=== PATIENT | female | born 1980 | race Caucasian/White ===

== ENCOUNTER 2018-08-03 21:32 | Observation (INO) ==
[2018-08-03] MEDS ORDERED: SODIUM CHLORIDE 0.9% 1,000 ML IV STA ×2 (21:56→21:57)
[2018-08-03] MEDS ORDERED: diphenhydrAMINE 50 MG/1 ML VIAL IV STA (21:57)
[2018-08-03] MEDS ORDERED: METOCLOPRAMIDE 10 MG/2 ML VIAL IV STA (21:57)
[2018-08-03 22:29] LABS: Basophils % 0.3 % (0.0-0.8); Eosinophils % 0.1 % (0.00-10.9); Hematocrit 39.6 VOL% (35.7-47.0); Hemoglobin 13.8 GM/DL (12.0-16.0); Immature Granulocytes % 0.4 %; Immature Granulocytes Absolute 0.06 #; Lymphocytes # 2.6 10*3/uL (1.4-4.0); Mean Corpuscular HGB Conc 34.8 GM/DL (32-36); Mean Corpuscular Volume 88.6 FL (87-102); Monocytes % 10.5 % (1.7-12.7); Neutrophils % 70.7 % (38.7-73.9); Platelet Count 304 T/CUMM (130-400); Red Blood Count 4.47 MC/CUMM (3.8-5.5); White Blood Count 14.4 T/CUMM (4-12)
[2018-08-03 22:56] LABS: Albumin 4.7 G/DL (3.4-5.0); Bilirubin,Total 0.8 MG/DL (0.2-1.0); Calcium 9.9 MG/DL (8.5-10.1); Osmolality,Calculated 269.4 MOS/KG (273-304); Total Protein 8.2 G/DL (6.4-8.3)
[2018-08-03] MEDS ORDERED: DOCUSATE SODIUM 100 MG CAPSULE PO PRN (23:39)
[2018-08-04] MEDS: MORPHINE 4 MG/1 ML VIAL IV PRN ×7 (00:06→23:39)
[2018-08-04] MEDS: ONDANSETRON 4 MG/2 ML VIAL IV PRN ×6 (00:06→21:31)
[2018-08-04 00:10] LABS: Risk Ratio 3.43; VLDL CHOLESTEROL 48.2 MG/DL
[2018-08-04 00:27] LABS: Apearance,Urine CLEAR (Clear); Protein,Urine Negative; Urine Color Yellow (Yellow); Urine Specific Gravity 1.016 (1.001-1.035)
[2018-08-04 00:28] LABS: Bilirubin,Urine Negative (Negative); Blood, Urine Negative (Negative); Glucose,Urine (UA) Negative (Negative); Ketones,Urine 5 mg/dL (Negative); Mucus,Urine Few /LPF (Occasional); Nitrite,Urine Negative (Negative); RBC,Urine <1 /HPF (0-4); Squamous Epithelial Cell,Urine Occasional /HPF (0-10); WBC,Urine 3 /HPF (0-6)
[2018-08-04] MEDS: SODIUM CHLORIDE 0.9% 1,000 ML IV SCH ×3 (02:03→20:39)
[2018-08-04 02:16] LABS: Barbiturates Screen,Urine Negative (Negative); Benzodiazepines Screen,Urine Negative (Negative); Cannabinoid Screen,Urine Positive (Negative); Opiate Screen,Urine Negative (Negative); Phencyclidine Screen,Urine Negative (Negative)
[2018-08-04] MEDS: POTASSIUM CHLORIDE RIDER 10 MEQ in PREMIX 1 EACH IV SCH ×4 (02:17→14:48)
[2018-08-04] MEDS ORDERED: POTASSIUM CHLORIDE RIDER 10 MEQ in PREMIX 1 EACH IV SCH (03:30)
[2018-08-04] MEDS: METOCLOPRAMIDE 10 MG TABLET PO SCH ×4 (05:55→21:46)
[2018-08-04 06:48] LABS: Basophils % 0.2 % (0.0-0.8); Eosinophils % 0.2 % (0.00-10.9); Hematocrit 34.9 VOL% (35.7-47.0); Hemoglobin 12.3 GM/DL (12.0-16.0); Immature Granulocytes % 0.5 %; Immature Granulocytes Absolute 0.06 #; Lymphocytes # 2.8 10*3/uL (1.4-4.0); Lymphocytes % 20.6 % (21.3-54.2); Mean Corpuscular HGB Conc 35.2 GM/DL (32-36); Mean Corpuscular Volume 89.7 FL (87-102); Mean Platelet Volume 10.6 FL (9.6-12.0); Monocytes % 11.1 % (1.7-12.7); Neutrophils % 67.4 % (38.7-73.9); Platelet Count 269 T/CUMM (130-400); Red Blood Count 3.89 MC/CUMM (3.8-5.5); Red Cell Distribution Width 12.2 % (9.3-17.3); White Blood Count 13.3 T/CUMM (4-12)
[2018-08-04 07:12] LABS: Albumin 3.7 G/DL (3.4-5.0); Bilirubin,Total 0.7 MG/DL (0.2-1.0); Calcium 8.6 MG/DL (8.5-10.1); Osmolality,Calculated 271.1 MOS/KG (273-304); Total Protein 6.7 G/DL (6.4-8.3)
[2018-08-04] MEDS: PANTOPRAZOLE 40 MG TABLET PO SCH (08:57)
[2018-08-04] MEDS: AZITHROMYCIN INJ 500 MG in SODIUM CHLORIDE 0.9% 250 ML IV SCH (16:44)
[2018-08-05] MEDS: ONDANSETRON 4 MG/2 ML VIAL IV PRN ×4 (00:47→18:33)
[2018-08-05] MEDS: SODIUM CHLORIDE 0.9% 1,000 ML IV SCH ×4 (02:53→17:47)
[2018-08-05] MEDS: MORPHINE 4 MG/1 ML VIAL IV PRN ×4 (03:13→18:00)
[2018-08-05 04:53] LABS: Basophils % 0.4 % (0.0-0.8); Eosinophils # 0.1 10*3/uL (0.0-0.87); Eosinophils % 0.8 % (0.00-10.9); Hematocrit 34.4 VOL% (35.7-47.0); Hemoglobin 11.4 GM/DL (12.0-16.0); Immature Granulocytes % 0.4 %; Immature Granulocytes Absolute 0.04 #; Mean Corpuscular HGB Conc 33.1 GM/DL (32-36); Mean Corpuscular Volume 92.5 FL (87-102); Mean Platelet Volume 10.4 FL (9.6-12.0); Monocytes % 10.4 % (1.7-12.7); Platelet Count 231 T/CUMM (130-400); Red Blood Count 3.72 MC/CUMM (3.8-5.5); Red Cell Distribution Width 12.1 % (9.3-17.3); White Blood Count 10.5 T/CUMM (4-12)
[2018-08-05 05:16] LABS: Calcium 8.7 MG/DL (8.5-10.1); Osmolality,Calculated 277.4 MOS/KG (273-304)
[2018-08-05] MEDS: METOCLOPRAMIDE 10 MG TABLET PO SCH ×3 (05:32→21:51)
[2018-08-05] MEDS: PANTOPRAZOLE 40 MG TABLET PO SCH (09:12)
[2018-08-05] MEDS: PANTOPRAZOLE 40 MG VIAL IV SCH (17:47)
[2018-08-05] MEDS: AZITHROMYCIN INJ 500 MG in SODIUM CHLORIDE 0.9% 250 ML IV SCH (17:47)
[2018-08-06] MEDS: SODIUM CHLORIDE 0.9% 1,000 ML IV SCH ×3 (01:59→21:06)
[2018-08-06] MEDS: ONDANSETRON 4 MG/2 ML VIAL IV PRN (02:00)
[2018-08-06] MEDS: MORPHINE 4 MG/1 ML VIAL IV PRN (02:00)
[2018-08-06] MEDS: METOCLOPRAMIDE 10 MG TABLET PO SCH ×2 (06:35→14:59)
[2018-08-06] MEDS: PANTOPRAZOLE 40 MG VIAL IV SCH (10:23)
[2018-08-06 11:53] VITALS: BP 140/95
== END 2018-08-06 16:17 | disposition home or self-care (01) ==
LOC: N.ED 21:32 → N.EDINP 21:32 → SUATTDRO 23:39 → N.3E 08-04 00:22
PROVIDERS: ADMIT Internal Medicine; ATTEND Hospitalist

== ENCOUNTER 2018-08-08 20:02 | Observation (INO) ==
[2018-08-08 20:47] LABS: Basophils % 0.2 % (0.0-0.8); Hematocrit 35.4 VOL% (35.7-47.0); Hemoglobin 12.5 GM/DL (12.0-16.0); Immature Granulocytes % 0.5 %; Immature Granulocytes Absolute 0.07 #; Lymphocytes # 1.2 10*3/uL (1.4-4.0); Lymphocytes % 8.3 % (21.3-54.2); Mean Corpuscular HGB Conc 35.3 GM/DL (32-36); Mean Corpuscular Volume 88.7 FL (87-102); Mean Platelet Volume 10.9 FL (9.6-12.0); Monocytes % 3.6 % (1.7-12.7); Neutrophils % 87.4 % (38.7-73.9); Platelet Count 294 T/CUMM (130-400); Red Blood Count 3.99 MC/CUMM (3.8-5.5); Red Cell Distribution Width 12.4 % (9.3-17.3); White Blood Count 14.1 T/CUMM (4-12)
[2018-08-08] MEDS ORDERED: HYDROmorphone 2 MG/1 ML VIAL IV STA (21:02)
[2018-08-08] MEDS ORDERED: ONDANSETRON 4 MG/2 ML VIAL IV STA (21:02)
[2018-08-08] MEDS ORDERED: PANTOPRAZOLE 40 MG VIAL IV STA (21:02)
[2018-08-08] MEDS ORDERED: METOCLOPRAMIDE 10 MG/2 ML VIAL IV STA (21:02)
[2018-08-08 21:14] LABS: Alanine Aminotransferase 26 U/L (13-56); Alkaline Phosphatase 90 U/L (45-117); Aspartate Amino Transferase 11 U/L (0-37); Blood Urea Nitrogen 5 MG/DL (7-18); Calcium 9.2 MG/DL (8.5-10.1); Glucose 126 MG/DL (74-106); Osmolality,Calculated 271.8 MOS/KG (273-304); Total Protein 6.7 G/DL (6.4-8.3)
[2018-08-08] MEDS ORDERED: SODIUM CHLORIDE 0.9% 1,000 ML IV STA (22:22)
[2018-08-08] MEDS ORDERED: traZODone 50 MG TABLET PO PRN (23:25)
[2018-08-08] MEDS ORDERED: ACETAMINOPHEN 325 MG TABLET PO PRN (23:25)
[2018-08-08] MEDS ORDERED: guaiFENesin/DM ER 600-30 MG TABLET PO PRN (23:25)
[2018-08-08] MEDS ORDERED: NICOTINE 21 MG/24 HR PATCH TRANSDERM PRN (23:25)
[2018-08-08] MEDS ORDERED: PROCHLORPERAZINE 10 MG TABLET PO PRN (23:25)
[2018-08-08] MEDS ORDERED: BISACODYL 5 MG TABLET PO PRN (23:25)
[2018-08-08] MEDS ORDERED: diphenhydrAMINE CAP 25 MG CAPSULE PO PRN (23:25)
[2018-08-08] MEDS ORDERED: SODIUM CHLORIDE 0.9% 1,000 ML IV ONE (23:31)
[2018-08-08] MEDS: ONDANSETRON 4 MG/2 ML VIAL IV PRN (23:42)
[2018-08-09] MEDS: PROMETHAZINE 25 MG/1 ML VIAL IM PRN ×2 (00:57→08:09)
[2018-08-09 01:11] LABS: Bilirubin,Total 0.4 MG/DL (0.2-1.0); Calcium 8.6 MG/DL (8.5-10.1); Osmolality,Calculated 263.4 MOS/KG (273-304); Total Protein 7.2 G/DL (6.4-8.3)
[2018-08-09 01:28] LABS: Basophils % 0.2 % (0.0-0.8); Hematocrit 37.6 VOL% (35.7-47.0); Hemoglobin 12.6 GM/DL (12.0-16.0); Immature Granulocytes % 0.7 %; Immature Granulocytes Absolute 0.11 #; Lymphocytes # 1.4 10*3/uL (1.4-4.0); Lymphocytes % 8.9 % (21.3-54.2); Mean Corpuscular HGB Conc 33.5 GM/DL (32-36); Mean Corpuscular Volume 92.4 FL (87-102); Mean Platelet Volume 10.7 FL (9.6-12.0); Monocytes % 3.6 % (1.7-12.7); Neutrophils % 86.6 % (38.7-73.9); Platelet Count 302 T/CUMM (130-400); Red Blood Count 4.07 MC/CUMM (3.8-5.5); Red Cell Distribution Width 12.5 % (9.3-17.3); White Blood Count 15.9 T/CUMM (4-12)
[2018-08-09] MEDS: PIPERACILLIN/TAZOBACTAM 3,375 MG in SODIUM CHLORIDE 0.9% 100 ML IV SCH ×4 (02:15→22:52)
[2018-08-09] MEDS: SODIUM CHLORIDE 0.9% 1,000 ML IV SCH ×3 (02:15→17:15)
[2018-08-09] MEDS: PANTOPRAZOLE 40 MG VIAL IV SCH ×3 (02:15→20:50)
[2018-08-09] MEDS ORDERED: VANCOMYCIN INJ 1,250 MG in SODIUM CHLORIDE 0.9% 250 ML IV SCH (05:00)
[2018-08-09] MEDS: ONDANSETRON 4 MG/2 ML VIAL IV PRN ×2 (05:27→22:56)
[2018-08-09] MEDS ORDERED: METOCLOPRAMIDE 10 MG TABLET PO SCH (06:00)
[2018-08-09] MEDS: ONDANSETRON 4 MG TABLET PO SCH ×2 (11:39→18:19)
[2018-08-09] MEDS: ERYTHROMYCIN BASE 250 MG TABLET PO SCH ×2 (16:26→20:49)
[2018-08-10] MEDS: ONDANSETRON 4 MG TABLET PO SCH ×4 (02:42→19:00)
[2018-08-10] MEDS: ONDANSETRON 4 MG/2 ML VIAL IV PRN ×3 (04:01→19:55)
[2018-08-10 04:56] LABS: Basophils % 0.2 % (0.0-0.8); Eosinophils % 0.1 % (0.00-10.9); Hematocrit 33.8 VOL% (35.7-47.0); Hemoglobin 11.4 GM/DL (12.0-16.0); Immature Granulocytes % 0.6 %; Immature Granulocytes Absolute 0.06 #; Lymphocytes # 1.8 10*3/uL (1.4-4.0); Lymphocytes % 17.7 % (21.3-54.2); Mean Corpuscular HGB Conc 33.7 GM/DL (32-36); Mean Corpuscular Volume 91.6 FL (87-102); Monocytes % 7.7 % (1.7-12.7); Neutrophils % 73.7 % (38.7-73.9); Platelet Count 268 T/CUMM (130-400); Red Blood Count 3.69 MC/CUMM (3.8-5.5); Red Cell Distribution Width 12.2 % (9.3-17.3); White Blood Count 10.3 T/CUMM (4-12)
[2018-08-10 05:13] LABS: Calcium 8.2 MG/DL (8.5-10.1); Osmolality,Calculated 270.8 MOS/KG (273-304)
[2018-08-10] MEDS: SODIUM CHLORIDE 0.9% 1,000 ML IV SCH ×3 (06:02→21:42)
[2018-08-10] MEDS ORDERED: LACTATED RINGERS 500 ML IV SCH (08:00)
[2018-08-10] MEDS: ERYTHROMYCIN BASE 250 MG TABLET PO SCH ×3 (09:00→21:14)
[2018-08-10] MEDS: PIPERACILLIN/TAZOBACTAM 3,375 MG in SODIUM CHLORIDE 0.9% 100 ML IV SCH ×2 (09:26→21:14)
[2018-08-10] MEDS: PANTOPRAZOLE 40 MG VIAL IV SCH ×2 (09:26→21:14)
[2018-08-10] MEDS: PROMETHAZINE 25 MG/1 ML VIAL IM PRN (23:31)
[2018-08-11] MEDS: ONDANSETRON 4 MG TABLET PO SCH ×3 (02:10→18:40)
[2018-08-11 05:29] LABS: Basophils % 0.3 % (0.0-0.8); Eosinophils # 0.1 10*3/uL (0.0-0.87); Eosinophils % 0.4 % (0.00-10.9); Hematocrit 35.3 VOL% (35.7-47.0); Hemoglobin 12.1 GM/DL (12.0-16.0); Immature Granulocytes % 0.6 %; Immature Granulocytes Absolute 0.07 #; Lymphocytes # 2.3 10*3/uL (1.4-4.0); Lymphocytes % 19.1 % (21.3-54.2); Mean Corpuscular HGB Conc 34.3 GM/DL (32-36); Mean Corpuscular Volume 90.7 FL (87-102); Mean Platelet Volume 10.4 FL (9.6-12.0); Monocytes % 9.1 % (1.7-12.7); Neutrophils % 70.5 % (38.7-73.9); Platelet Count 268 T/CUMM (130-400); Red Blood Count 3.89 MC/CUMM (3.8-5.5); Red Cell Distribution Width 12.3 % (9.3-17.3); White Blood Count 11.8 T/CUMM (4-12)
[2018-08-11] MEDS: PIPERACILLIN/TAZOBACTAM 3,375 MG in SODIUM CHLORIDE 0.9% 100 ML IV SCH ×3 (05:47→23:37)
[2018-08-11 05:58] LABS: Calcium 8.7 MG/DL (8.5-10.1); Osmolality,Calculated 265.2 MOS/KG (273-304)
[2018-08-11] MEDS ORDERED: PROPOFOL 200 MG/20 ML VIAL IV ONE (09:00)
[2018-08-11] MEDS ORDERED: LIDOCAINE 2% 5 ML VIAL ONE (09:00)
[2018-08-11] MEDS: ERYTHROMYCIN BASE 250 MG TABLET PO SCH ×3 (09:09→21:05)
[2018-08-11] MEDS: PANTOPRAZOLE 40 MG VIAL IV SCH ×2 (09:12→21:05)
[2018-08-11] MEDS ORDERED: SCOPOLAMINE 1.5 MG PATCH TRANSDERM SCH (10:00)
[2018-08-11] MEDS: POTASSIUM CHLORIDE 10 MEQ TABLET PO SCH ×2 (14:36→21:05)
[2018-08-11] MEDS: PROCHLORPERAZINE 10 MG TABLET PO SCH ×2 (14:36→21:05)
[2018-08-11] MEDS: SODIUM CHLORIDE 0.9% 1,000 ML IV SCH ×2 (23:05→23:06)
[2018-08-12] MEDS: ONDANSETRON 4 MG TABLET PO SCH ×2 (01:56→10:16)
[2018-08-12] MEDS: PIPERACILLIN/TAZOBACTAM 3,375 MG in SODIUM CHLORIDE 0.9% 100 ML IV SCH (05:38)
[2018-08-12 06:07] LABS: Basophils # 0.1 10*3/uL (0.0-0.2); Basophils % 0.4 % (0.0-0.8); Eosinophils # 0.2 10*3/uL (0.0-0.87); Eosinophils % 1.5 % (0.00-10.9); Hematocrit 34.2 VOL% (35.7-47.0); Hemoglobin 11.5 GM/DL (12.0-16.0); Immature Granulocytes % 0.9 %; Lymphocytes # 3.7 10*3/uL (1.4-4.0); Lymphocytes % 32.6 % (21.3-54.2); Mean Corpuscular HGB Conc 33.6 GM/DL (32-36); Mean Corpuscular Volume 92.2 FL (87-102); Mean Platelet Volume 10.6 FL (9.6-12.0); Monocytes % 11.5 % (1.7-12.7); Neutrophils % 53.1 % (38.7-73.9); Platelet Count 271 T/CUMM (130-400); Red Blood Count 3.71 MC/CUMM (3.8-5.5); Red Cell Distribution Width 12.6 % (9.3-17.3); White Blood Count 11.5 T/CUMM (4-12)
[2018-08-12 06:23] LABS: Calcium 8.3 MG/DL (8.5-10.1); Osmolality,Calculated 275.5 MOS/KG (273-304)
[2018-08-12 07:46] VITALS: BP 107/72
[2018-08-12] MEDS: POTASSIUM CHLORIDE 10 MEQ TABLET PO SCH (10:16)
[2018-08-12] MEDS: PROCHLORPERAZINE 10 MG TABLET PO SCH (10:16)
[2018-08-12] MEDS: ERYTHROMYCIN BASE 250 MG TABLET PO SCH (10:16)
[2018-08-12] MEDS: PANTOPRAZOLE 40 MG VIAL IV SCH (10:17)
[2018-08-12] MEDS ORDERED: ONDANSETRON 4 MG TABLET PO PRN (10:29)
[2018-08-12] MEDS ORDERED: PANTOPRAZOLE 40 MG TABLET PO SCH (21:00)
== END 2018-08-12 13:00 | disposition home or self-care (01) ==
LOC: N.ED 20:02 → N.EDINP 20:02 → N.5E 23:52
PROVIDERS: ADMIT Hospitalist; ATTEND Hospitalist

== ENCOUNTER 2019-03-20 12:02 | Inpatient (IN) ==
[2019-03-20] MEDS ORDERED: ONDANSETRON 4 MG/2 ML VIAL IV STA (12:29)
[2019-03-20] MEDS ORDERED: SODIUM CHLORIDE 0.9% 2,000 ML IV STA (12:29)
[2019-03-20 12:38] LABS: Basophils % 0.2 % (0.0-0.8); Hematocrit 39.4 VOL% (35.7-47.0); Hemoglobin 13.5 GM/DL (12.0-16.0); Immature Granulocytes % 0.5 %; Immature Granulocytes Absolute 0.09 #; Lymphocytes # 2.1 10*3/uL (1.4-4.0); Lymphocytes % 11.6 % (21.3-54.2); Mean Corpuscular HGB Conc 34.3 GM/DL (32-36); Mean Corpuscular Volume 90.8 FL (87-102); Monocytes % 10.1 % (1.7-12.7); Neutrophils % 77.6 % (38.7-73.9); Platelet Count 354 T/CUMM (130-400); Red Blood Count 4.34 MC/CUMM (3.8-5.5); Red Cell Distribution Width 12.2 % (9.3-17.3); White Blood Count 18.4 T/CUMM (4-12)
[2019-03-20 12:42] LABS: Apearance,Urine CLEAR (Clear); Bilirubin,Urine Negative (Negative); Blood, Urine Small mg/dL (Negative); Glucose,Urine (UA) Negative (Negative); Ketones,Urine 5 mg/dL (Negative); Mucus,Urine Occasional /LPF (Occasional); Nitrite,Urine Negative (Negative); Protein,Urine 100 MG/DL; RBC,Urine 7 /HPF (0-4); Squamous Epithelial Cell,Urine Occasional /HPF (0-10); Urine Color Yellow (Yellow); Urine Specific Gravity 1.025 (1.001-1.035); Urine Urobilinogen < 2.0 EU/DL (0.2-1.0); WBC,Urine 2 /HPF (0-6)
[2019-03-20 12:59] LABS: Albumin 4.5 G/DL (3.4-5.0); Bilirubin,Total 0.4 MG/DL (0.2-1.0); Calcium 9.6 MG/DL (8.5-10.1); Total Protein 8.7 G/DL (6.4-8.3)
[2019-03-20] MEDS ORDERED: PROMETHAZINE INJ 25 MG in SODIUM CHLORIDE 0.9% 50 ML IV STA (14:52)
[2019-03-20] MEDS ORDERED: PANTOPRAZOLE 40 MG VIAL IV STA (14:53)
[2019-03-20] MEDS ORDERED: PROMETHAZINE 25 MG/1 ML VIAL ONE (14:54)
[2019-03-20] MEDS ORDERED: SCOPOLAMINE 1.5 MG PATCH TRANSDERM SCH (16:00)
[2019-03-20] MEDS ORDERED: PROCHLORPERAZINE 10 MG TABLET PO PRN (16:35)
[2019-03-20] MEDS ORDERED: LORazepam 2 MG/1 ML VIAL IV PRN (16:35)
[2019-03-20] MEDS ORDERED: ACETAMINOPHEN 325 MG TABLET PO PRN (16:35)
[2019-03-20] MEDS: AZITHROMYCIN INJ 500 MG in SODIUM CHLORIDE 0.9% 250 ML IV SCH (16:51)
[2019-03-20] MEDS: LACTATED RINGERS 1,000 ML IV SCH (16:52)
[2019-03-20] MEDS: HYDROmorphone 2 MG/1 ML VIAL IV PRN (20:01)
[2019-03-20] MEDS: METOCLOPRAMIDE 10 MG/2 ML VIAL IV PRN (20:01)
[2019-03-21] MEDS: LACTATED RINGERS 1,000 ML IV SCH ×2 (00:14→09:02)
[2019-03-21] MEDS: ONDANSETRON 4 MG/2 ML VIAL IV PRN ×3 (00:14→12:43)
[2019-03-21] MEDS: HYDROmorphone 2 MG/1 ML VIAL IV PRN ×3 (00:24→09:02)
[2019-03-21] MEDS: METOCLOPRAMIDE 10 MG/2 ML VIAL IV PRN (02:51)
[2019-03-21 05:49] LABS: Basophils % 0.3 % (0.0-0.8); Eosinophils # 0.1 10*3/uL (0.0-0.87); Eosinophils % 0.4 % (0.00-10.9); Hematocrit 32.6 VOL% (35.7-47.0); Hemoglobin 10.8 GM/DL (12.0-16.0); Immature Granulocytes % 0.5 %; Immature Granulocytes Absolute 0.06 #; Lymphocytes # 4.1 10*3/uL (1.4-4.0); Mean Corpuscular HGB Conc 33.1 GM/DL (32-36); Mean Corpuscular Volume 93.4 FL (87-102); Mean Platelet Volume 10.6 FL (9.6-12.0); Monocytes % 9.9 % (1.7-12.7); Neutrophils % 56.9 % (38.7-73.9); Platelet Count 258 T/CUMM (130-400); Red Blood Count 3.49 MC/CUMM (3.8-5.5); Red Cell Distribution Width 12.5 % (9.3-17.3); White Blood Count 12.8 T/CUMM (4-12)
[2019-03-21 06:01] LABS: Calcium 8.6 MG/DL (8.5-10.1); Osmolality,Calculated 278.5 MOS/KG (273-304)
[2019-03-21] MEDS: PANTOPRAZOLE 40 MG VIAL IV SCH (09:02)
[2019-03-21] MEDS ORDERED: POTASSIUM CHLORIDE 20 MEQ TABLET PO PRN (09:49)
[2019-03-21] MEDS: AZITHROMYCIN INJ 500 MG in SODIUM CHLORIDE 0.9% 250 ML IV SCH (18:03)
[2019-03-22] MEDS: ONDANSETRON 4 MG/2 ML VIAL IV PRN (00:36)
[2019-03-22] MEDS: HYDROmorphone 2 MG/1 ML VIAL IV PRN (00:39)
[2019-03-22] MEDS: LACTATED RINGERS 1,000 ML IV SCH ×3 (00:42→08:02)
[2019-03-22 08:23] LABS: Basophils # 0.1 10*3/uL (0.0-0.2); Basophils % 0.5 % (0.0-0.8); Eosinophils # 0.1 10*3/uL (0.0-0.87); Eosinophils % 0.9 % (0.00-10.9); Hematocrit 32.9 VOL% (35.7-47.0); Immature Granulocytes % 0.4 %; Immature Granulocytes Absolute 0.04 #; Lymphocytes # 3.2 10*3/uL (1.4-4.0); Lymphocytes % 33.6 % (21.3-54.2); Mean Corpuscular HGB Conc 33.4 GM/DL (32-36); Mean Corpuscular Volume 93.7 FL (87-102); Mean Platelet Volume 10.3 FL (9.6-12.0); Monocytes % 10.8 % (1.7-12.7); Neutrophils % 53.8 % (38.7-73.9); Platelet Count 237 T/CUMM (130-400); Red Blood Count 3.51 MC/CUMM (3.8-5.5); Red Cell Distribution Width 12.2 % (9.3-17.3); White Blood Count 9.5 T/CUMM (4-12)
[2019-03-22 08:48] LABS: Calcium 8.4 MG/DL (8.5-10.1); Osmolality,Calculated 277.4 MOS/KG (273-304)
[2019-03-22] MEDS: AZITHROMYCIN INJ 500 MG in SODIUM CHLORIDE 0.9% 250 ML IV SCH (08:49)
[2019-03-22] MEDS: PANTOPRAZOLE 40 MG VIAL IV SCH (08:49)
[2019-03-22 12:14] VITALS: BP 94/60
== END 2019-03-22 12:15 | disposition home or self-care (01) | DRG 392 ==
LOC: N.ED 12:02 → N.EDINP 15:25 → N.2E 15:53
PROVIDERS: ADMIT Internal Medicine; ATTEND Internal Medicine

== ENCOUNTER 2021-04-13 11:04 | Observation (INO) ==
[2021-04-13] MEDS ORDERED: ONDANSETRON 4 MG/2 ML VIAL IV STA (18:30)
[2021-04-13] MEDS ORDERED: PANTOPRAZOLE 40 MG VIAL IV STA (18:30)
[2021-04-13] MEDS ORDERED: SODIUM CHLORIDE 0.9% 1,000 ML IV STA (18:30)
[2021-04-13] MEDS ORDERED: PROMETHAZINE 25 MG/1 ML VIAL IM STA (18:33)
[2021-04-13 19:09] LABS: Basophils % 0.1 % (0.0-0.8); Hematocrit 39.3 VOL% (35.7-47.0); Hemoglobin 13.1 GM/DL (12.0-16.0); Immature Granulocytes % 0.5 %; Immature Granulocytes Absolute 0.08 #; Lymphocytes # 2.3 10*3/uL (1.4-4.0); Lymphocytes % 13.7 % (21.3-54.2); Mean Corpuscular HGB Conc 33.3 GM/DL (32-36); Mean Platelet Volume 10.5 FL (9.6-12.0); Monocytes % 8.2 % (1.7-12.7); Neutrophils % 77.5 % (38.7-73.9); Platelet Count 372 T/CUMM (130-400); Red Blood Count 4.27 MC/CUMM (3.8-5.5); Red Cell Distribution Width 12.6 % (9.3-17.3); White Blood Count 16.6 T/CUMM (4-12)
[2021-04-13 19:18] LABS: Albumin 4.5 G/DL (3.4-5.0); Bilirubin,Total 0.4 MG/DL (0.20-1.00); Calcium 10.2 MG/DL (8.5-10.1); Total Protein 8.6 G/DL (6.4-8.2)
[2021-04-13 20:08] LABS: Bilirubin,Urine Negative (Negative); Blood, Urine Small mg/dL (Negative); Glucose,Urine (UA) Negative (Negative); Ketones,Urine 20 mg/dL (Negative); Mucus,Urine Many /LPF (Occasional); Nitrite,Urine Negative (Negative); Protein,Urine 100 MG/DL; RBC,Urine 4 /HPF (0-4); Squamous Epithelial Cell,Urine Occasional /HPF (0-10); Urine Appearance CLEAR (Clear); Urine Color Yellow (Yellow); Urine Specific Gravity 1.027 (1.001-1.035); Urine Urobilinogen < 2.0 EU/DL (<2.0)
[2021-04-13] MEDS ORDERED: SODIUM CHLORIDE 0.9% 500 ML IV STA (20:57)
[2021-04-13] MEDS ORDERED: DICYCLOMINE 20 MG TABLET PO STA (20:57)
[2021-04-13] MEDS ORDERED: KETOROLAC 30 MG/1 ML VIAL IV STA (20:57)
[2021-04-13] MEDS ORDERED: METOCLOPRAMIDE 10 MG/2 ML VIAL IV STA (20:57)
[2021-04-13] MEDS ORDERED: ACETAMINOPHEN 325 MG TABLET PO PRN (22:03)
[2021-04-13] MEDS ORDERED: GLUCAGON 1 MG VIAL IM PRN (22:03)
[2021-04-13] MEDS ORDERED: DEXTROSE 10% 250 ML BAG IV PRN (22:03)
[2021-04-13] MEDS ORDERED: DOCUSATE SODIUM 100 MG CAPSULE PO PRN (22:03)
[2021-04-14] MEDS: DEXTROSE 5% NACL 0.9% 1,000 ML IV SCH ×3 (04:00→15:12)
[2021-04-14 04:48] LABS: Basophils % 0.2 % (0.0-0.8); Eosinophils % 0.1 % (0.00-10.9); Hematocrit 34.5 VOL% (35.7-47.0); Hemoglobin 11.6 GM/DL (12.0-16.0); Immature Granulocytes % 0.4 %; Immature Granulocytes Absolute 0.07 #; Lymphocytes # 2.5 10*3/uL (1.4-4.0); Lymphocytes % 14.8 % (21.3-54.2); Mean Corpuscular HGB Conc 33.6 GM/DL (32-36); Mean Corpuscular Volume 93.5 FL (87-102); Mean Platelet Volume 10.8 FL (9.6-12.0); Monocytes % 8.8 % (1.7-12.7); Neutrophils % 75.7 % (38.7-73.9); Platelet Count 296 T/CUMM (130-400); Red Blood Count 3.69 MC/CUMM (3.8-5.5); Red Cell Distribution Width 12.2 % (9.3-17.3); White Blood Count 16.6 T/CUMM (4-12)
[2021-04-14] MEDS: PROMETHAZINE 25 MG/1 ML VIAL IM PRN ×3 (04:55→18:26)
[2021-04-14 05:11] LABS: Calcium 8.5 MG/DL (8.5-10.1); Osmolality,Calculated 279.7 MOS/KG (273-304); Potassium 3.6 MMOL/L (3.5-5.1)
[2021-04-14] MEDS ORDERED: HEPARIN 5,000 UNIT/1 ML VIAL SUBCUT SCH (09:00)
[2021-04-14] MEDS: PANTOPRAZOLE 40 MG VIAL IV SCH ×2 (09:15→21:45)
[2021-04-14] MEDS: ONDANSETRON 4 MG/2 ML VIAL IV PRN ×3 (09:15→21:44)
[2021-04-14] MEDS: MORPHINE 2 MG/1 ML SYRINGE IV PRN ×2 (15:40→21:44)
[2021-04-15] MEDS: DEXTROSE 5% NACL 0.9% 1,000 ML IV SCH ×3 (00:25→16:41)
[2021-04-15] MEDS: MORPHINE 2 MG/1 ML SYRINGE IV PRN ×4 (02:13→20:48)
[2021-04-15] MEDS: PROMETHAZINE 25 MG/1 ML VIAL IM PRN ×2 (02:18→17:01)
[2021-04-15] MEDS ORDERED: LACTATED RINGERS 1,000 ML IV SCH (08:00)
[2021-04-15 08:42] LABS: Basophils % 0.2 % (0.0-0.8); Eosinophils % 0.1 % (0.00-10.9); Hematocrit 38.2 VOL% (35.7-47.0); Hemoglobin 12.9 GM/DL (12.0-16.0); Immature Granulocytes % 0.4 %; Immature Granulocytes Absolute 0.06 #; Lymphocytes # 2.1 10*3/uL (1.4-4.0); Lymphocytes % 15.2 % (21.3-54.2); Mean Corpuscular HGB Conc 33.8 GM/DL (32-36); Mean Corpuscular Volume 92.5 FL (87-102); Mean Platelet Volume 10.3 FL (9.6-12.0); Monocytes % 10.2 % (1.7-12.7); Neutrophils % 73.9 % (38.7-73.9); Platelet Count 309 T/CUMM (130-400); Red Blood Count 4.13 MC/CUMM (3.8-5.5); Red Cell Distribution Width 12.1 % (9.3-17.3); White Blood Count 13.9 T/CUMM (4-12)
[2021-04-15 08:58] LABS: Calcium 8.8 MG/DL (8.5-10.1); Osmolality,Calculated 275.8 MOS/KG (273-304); Potassium 3.5 MMOL/L (3.5-5.1)
[2021-04-15] MEDS: PANTOPRAZOLE 40 MG VIAL IV SCH ×2 (08:58→20:47)
[2021-04-15] MEDS: ONDANSETRON 4 MG/2 ML VIAL IV PRN ×3 (08:58→20:47)
[2021-04-15] MEDS ORDERED: LIDOCAINE 2% 5 ML VIAL ONE (12:36)
[2021-04-15] MEDS ORDERED: propofoL 200 MG/20 ML VIAL IV ONE (12:36)
[2021-04-15] MEDS: ERYTHROMYCIN INJ 125 MG in SODIUM CHLORIDE 0.9% 100 ML IV SCH ×2 (15:01→21:05)
[2021-04-16] MEDS: DEXTROSE 5% NACL 0.9% 1,000 ML IV SCH ×3 (00:11→09:17)
[2021-04-16] MEDS: PROMETHAZINE 25 MG/1 ML VIAL IM PRN (02:50)
[2021-04-16] MEDS: MORPHINE 2 MG/1 ML SYRINGE IV PRN ×2 (02:51→09:39)
[2021-04-16] MEDS: ERYTHROMYCIN INJ 125 MG in SODIUM CHLORIDE 0.9% 100 ML IV SCH ×2 (02:57→09:16)
[2021-04-16 08:40] LABS: Basophils # 0.1 10*3/uL (0.0-0.2); Basophils % 0.4 % (0.0-0.8); Eosinophils # 0.1 10*3/uL (0.0-0.87); Eosinophils % 0.6 % (0.00-10.9); Hematocrit 36.7 VOL% (35.7-47.0); Hemoglobin 12.2 GM/DL (12.0-16.0); Immature Granulocytes % 0.5 %; Immature Granulocytes Absolute 0.06 #; Lymphocytes # 2.3 10*3/uL (1.4-4.0); Lymphocytes % 17.6 % (21.3-54.2); Mean Corpuscular HGB Conc 33.2 GM/DL (32-36); Mean Corpuscular Volume 92.7 FL (87-102); Mean Platelet Volume 10.4 FL (9.6-12.0); Monocytes % 11.2 % (1.7-12.7); Neutrophils % 69.7 % (38.7-73.9); Platelet Count 278 T/CUMM (130-400); Red Blood Count 3.96 MC/CUMM (3.8-5.5); White Blood Count 12.9 T/CUMM (4-12)
[2021-04-16 08:57] LABS: Calcium 8.7 MG/DL (8.5-10.1); Osmolality,Calculated 274.7 MOS/KG (273-304); Potassium 3.3 MMOL/L (3.5-5.1)
[2021-04-16] MEDS: PANTOPRAZOLE 40 MG VIAL IV SCH (09:16)
[2021-04-16] MEDS ORDERED: POTASSIUM CHLORIDE 20 MEQ TABLET PO ONE (11:34)
[2021-04-16 12:22] VITALS: BP 121/71
== END 2021-04-16 14:53 | disposition home or self-care (01) ==
LOC: N.EDINP 11:04 → N.ED 11:04 → N.5E 04-14 13:20
PROVIDERS: ADMIT Internal Medicine; ATTEND Internal Medicine

== ENCOUNTER 2021-10-11 01:40 | Inpatient (IN) ==
[2021-10-11] MEDS ORDERED: METOCLOPRAMIDE 10 MG/2 ML VIAL IV STA (02:03)
[2021-10-11] MEDS ORDERED: SODIUM CHLORIDE 0.9% 1,000 ML IV STA (02:03)
[2021-10-11] MEDS ORDERED: PANTOPRAZOLE 40 MG VIAL IV STA (02:03)
[2021-10-11] MEDS ORDERED: ONDANSETRON 4 MG/2 ML VIAL IV STA (02:03)
[2021-10-11 02:31] LABS: Basophils % 0.1 % (0.0-0.8); Hematocrit 40.5 VOL% (35.7-47.0); Hemoglobin 13.5 GM/DL (12.0-16.0); Immature Granulocytes % 0.4 %; Immature Granulocytes Absolute 0.08 #; Lymphocytes # 2.3 10*3/uL (1.4-4.0); Lymphocytes % 12.8 % (21.3-54.2); Mean Corpuscular HGB Conc 33.3 GM/DL (32-36); Mean Corpuscular Volume 92.7 FL (87-102); Mean Platelet Volume 10.6 FL (9.6-12.0); Monocytes # 1.6 10*3/uL (0.11-0.8); Monocytes % 8.7 % (1.7-12.7); Platelet Count 333 T/CUMM (130-400); Red Blood Count 4.37 MC/CUMM (3.8-5.5); Red Cell Distribution Width 12.3 % (9.3-17.3); White Blood Count 17.9 T/CUMM (4-12)
[2021-10-11 02:54] LABS: Albumin 4.6 G/DL (3.4-5.0); Bilirubin,Total 0.6 MG/DL (0.20-1.00); Calcium 10.4 MG/DL (8.5-10.1); Osmolality,Calculated 274.1 MOS/KG (273-304); Total Protein 8.2 G/DL (6.4-8.2)
[2021-10-11] MEDS ORDERED: PROMETHAZINE 25 MG/1 ML VIAL IM STA (03:03)
[2021-10-11] MEDS ORDERED: ACETAMINOPHEN 325 MG TABLET PO PRN (03:19)
[2021-10-11] MEDS ORDERED: ONDANSETRON 4 MG/2 ML VIAL IV PRN (03:19)
[2021-10-11] MEDS ORDERED: PROMETHAZINE 25 MG/1 ML VIAL IM PRN (03:19)
[2021-10-11] MEDS ORDERED: GLUCAGON 1 MG VIAL IM PRN (03:19)
[2021-10-11] MEDS ORDERED: DEXTROSE 10% 250 ML BAG IV PRN (03:37)
[2021-10-11] MEDS ORDERED: METOCLOPRAMIDE 10 MG/2 ML VIAL IV SCH (04:00)
[2021-10-11] MEDS ORDERED: HYDROmorphone 1 MG/1 ML SYRINGE IV PRN (04:01)
[2021-10-11] MEDS: SODIUM CHLORIDE 0.9% 1,000 ML IV SCH ×3 (04:35→22:36)
[2021-10-11] MEDS: ERYTHROMYCIN INJ 125 MG in SODIUM CHLORIDE 0.9% 100 ML IV SCH ×4 (04:40→23:54)
[2021-10-11] MEDS: METOCLOPRAMIDE 10 MG/2 ML VIAL IV SCH ×3 (08:33→21:06)
[2021-10-11] MEDS: DOCUSATE SODIUM 100 MG CAPSULE PO SCH ×2 (08:34→21:07)
[2021-10-11] MEDS: PANTOPRAZOLE 40 MG VIAL IV SCH (08:34)
[2021-10-11 08:45] LABS: Parathyroid Hormone Intact 67.8 PG/ML (18.4-80.1)
[2021-10-11] MEDS: ONDANSETRON 4 MG/2 ML VIAL IV PRN ×2 (09:25→17:37)
[2021-10-11] MEDS: PROMETHAZINE 25 MG/1 ML VIAL IM PRN ×2 (13:21→22:33)
[2021-10-12] MEDS: ONDANSETRON 4 MG/2 ML VIAL IV PRN (01:46)
[2021-10-12 02:03] LABS: RBC,Urine 4 /HPF (0-4); Squamous Epithelial Cell,Urine Occasional /HPF (0-10)
[2021-10-12 02:05] LABS: Bilirubin,Urine Negative (Negative); Blood, Urine Trace mg/dL (Negative); Glucose,Urine (UA) Negative (Negative); Ketones,Urine Negative (Negative); Nitrite,Urine Negative (Negative); Protein,Urine Negative (Negative); Urine Appearance Clear (Clear); Urine Color Yellow (Yellow); Urine Urobilinogen 0.2 eU/dL (<2.0); Urine pH 7.5 (4.5-8.0)
[2021-10-12 02:43] LABS: Barbiturates Screen,Urine Negative (Negative); Benzodiazepines Screen,Urine Negative (Negative); Cannabinoid Screen,Urine Positive (Negative); Opiate Screen,Urine Negative (Negative); Phencyclidine Screen,Urine Negative (Negative)
[2021-10-12] MEDS: METOCLOPRAMIDE 10 MG/2 ML VIAL IV SCH (02:54)
[2021-10-12] MEDS: ERYTHROMYCIN INJ 125 MG in SODIUM CHLORIDE 0.9% 100 ML IV SCH ×2 (05:18→13:02)
[2021-10-12 06:00] LABS: Basophils # 0.1 10*3/uL (0.0-0.2); Basophils % 0.3 % (0.0-0.8); Calcium 8.9 MG/DL (8.5-10.1); Eosinophils % 0.1 % (0.00-10.9); Hematocrit 37.1 VOL% (35.7-47.0); Hemoglobin 12.6 GM/DL (12.0-16.0); Immature Granulocytes % 0.6 %; Immature Granulocytes Absolute 0.11 #; Lymphocytes # 2.2 10*3/uL (1.4-4.0); Lymphocytes % 12.9 % (21.3-54.2); Mean Corpuscular Volume 91.8 FL (87-102); Mean Platelet Volume 12.7 FL (9.6-12.0); Monocytes % 11.7 % (1.7-12.7); Neutrophils % 74.4 % (38.7-73.9); Platelet Count 219 T/CUMM (130-400); Potassium 3.8 MMOL/L (3.5-5.1); Red Blood Count 4.04 MC/CUMM (3.8-5.5); White Blood Count 17.4 T/CUMM (4-12)
[2021-10-12 06:10] LABS: Lymphocytes 18 % (20-55); Microcytosis Slight; Total Cells Counted 100
[2021-10-12] MEDS: PROMETHAZINE 25 MG/1 ML VIAL IM PRN (10:32)
[2021-10-12] MEDS: PANTOPRAZOLE 40 MG VIAL IV SCH (10:33)
[2021-10-12] MEDS: DOCUSATE SODIUM 100 MG CAPSULE PO SCH (10:33)
[2021-10-12 12:59] VITALS: BP 142/73
[2021-10-12] MEDS: SODIUM CHLORIDE 0.9% 1,000 ML IV SCH (13:02)
== END 2021-10-12 14:30 | disposition home or self-care (01) | DRG 392 ==
LOC: N.ED 01:40 → N.EDINP 01:40 → SUATTDRO 03:19 → N.TELEN 05:30
PROVIDERS: ADMIT Internal Medicine; ATTEND Internal Medicine

== ENCOUNTER 2022-01-04 14:36 | Inpatient (IN) ==
[2022-01-04] MEDS ORDERED: SODIUM CHLORIDE 0.9% 1,000 ML IV STA (15:54)
[2022-01-04] MEDS ORDERED: ONDANSETRON 4 MG/2 ML VIAL IV STA (15:55)
[2022-01-04] MEDS ORDERED: PROMETHAZINE INJ 25 MG in SODIUM CHLORIDE 0.9% 50 ML IV STA (15:55)
[2022-01-04] MEDS ORDERED: PROMETHAZINE 25 MG/1 ML VIAL ONE (15:57)
[2022-01-04 15:59] LABS: Basophils # 0.1 10*3/uL (0.0-0.2); Basophils % 0.3 % (0.0-0.8); Eosinophils % 0.2 % (0.00-10.9); Hematocrit 39.6 VOL% (35.7-47.0); Hemoglobin 13.4 GM/DL (12.0-16.0); Immature Granulocytes % 0.7 %; Immature Granulocytes Absolute 0.13 #; Lymphocytes # 1.6 10*3/uL (1.4-4.0); Lymphocytes % 8.6 % (21.3-54.2); Mean Corpuscular HGB Conc 33.8 GM/DL (32-36); Mean Corpuscular Volume 94.1 FL (87-102); Mean Platelet Volume 9.7 FL (9.6-12.0); Monocytes % 5.5 % (1.7-12.7); Neutrophils % 84.7 % (38.7-73.9); Platelet Count 374 T/CUMM (130-400); Red Blood Count 4.21 MC/CUMM (3.8-5.5); Red Cell Distribution Width 13.1 % (9.3-17.3); White Blood Count 18.8 T/CUMM (4-12)
[2022-01-04 16:10] LABS: Bacteria,Urine Occasional /HPF (Few); Mucus,Urine Few /LPF (Occasional); RBC,Urine 5 /HPF (0-4); Squamous Epithelial Cell,Urine Occasional /HPF (0-10); Urine Appearance Clear (Clear); Urine Color Yellow (Yellow); Urine pH 6.5 (4.5-8.0)
[2022-01-04 16:11] LABS: Bilirubin,Urine Negative (Negative); Blood, Urine Trace mg/dL (Negative); Glucose,Urine (UA) Negative (Negative); Ketones,Urine 15 mg/dL (Negative); Nitrite,Urine Negative (Negative); Protein,Urine Negative (Negative); Urine Specific Gravity >= 1.030 (1.001-1.035); Urine Urobilinogen 0.2 eU/dL (<2.0)
[2022-01-04 16:14] LABS: Alanine Aminotransferase 118 U/L (13-56); Albumin 4.3 G/DL (3.4-5.0); Alkaline Phosphatase 96 U/L (45-117); Aspartate Amino Transferase 35 U/L (0-37); Bilirubin,Total < 0.39 MG/DL (0.20-1.00); Blood Urea Nitrogen 19 MG/DL (7-18); Carbon Dioxide 22 MMOL/L (21-32); Chloride 105 MMOL/L (98-107); Glucose 134 MG/DL (74-106); Osmolality,Calculated 276.8 MOS/KG (273-304); Potassium 4.1 MMOL/L (3.5-5.1); Sodium 137 MMOL/L (136-145); Total Protein 8.3 G/DL (6.4-8.2)
[2022-01-04 17:04] LABS: Barbiturates Screen,Urine Negative (Negative); Benzodiazepines Screen,Urine Negative (Negative); Cannabinoid Screen,Urine Positive (Negative); Opiate Screen,Urine Negative (Negative); Phencyclidine Screen,Urine Negative (Negative)
[2022-01-04] MEDS ORDERED: KETOROLAC 30 MG/1 ML VIAL IV STA (17:07)
[2022-01-04] MEDS ORDERED: KETOROLAC 30 MG/1 ML VIAL ONE (17:08)
[2022-01-04] MEDS ORDERED: ACETAMINOPHEN 325 MG TABLET PO PRN (18:22)
[2022-01-04] MEDS ORDERED: traZODone 50 MG TABLET PO PRN (18:22)
[2022-01-04] MEDS ORDERED: LEVOFLOXACIN INJ 750 MG/150 ML PREMIX IV SCH (18:30)
[2022-01-04] MEDS ORDERED: SCOPOLAMINE 1.5 MG PATCH TRANSDERM SCH (18:30)
[2022-01-04] MEDS: ENOXAPARIN 40 MG/0.4 ML SYRINGE SUBCUT SCH (23:25)
[2022-01-04] MEDS: ONDANSETRON 4 MG/2 ML VIAL IV PRN (23:58)
[2022-01-05] MEDS: SODIUM CHLORIDE 0.45% 1,000 ML IV SCH ×3 (00:59→11:54)
[2022-01-05] MEDS: ONDANSETRON 4 MG/2 ML VIAL IV PRN ×4 (03:28→19:40)
[2022-01-05 06:17] LABS: Basophils % 0.1 % (0.0-0.8); Hematocrit 36.8 VOL% (35.7-47.0); Hemoglobin 12.4 GM/DL (12.0-16.0); Immature Granulocytes % 0.4 %; Immature Granulocytes Absolute 0.06 #; Lymphocytes # 1.4 10*3/uL (1.4-4.0); Lymphocytes % 8.6 % (21.3-54.2); Mean Corpuscular HGB Conc 33.7 GM/DL (32-36); Mean Corpuscular Volume 93.6 FL (87-102); Mean Platelet Volume 9.6 FL (9.6-12.0); Monocytes # 0.9 10*3/uL (0.11-0.8); Monocytes % 5.8 % (1.7-12.7); Neutrophils % 85.1 % (38.7-73.9); Platelet Count 328 T/CUMM (130-400); Red Blood Count 3.93 MC/CUMM (3.8-5.5); Red Cell Distribution Width 13.1 % (9.3-17.3); White Blood Count 15.8 T/CUMM (4-12)
[2022-01-05 06:44] LABS: Albumin 3.9 G/DL (3.4-5.0); Bilirubin,Total 0.4 MG/DL (0.20-1.00); Calcium 9.6 MG/DL (8.5-10.1); Osmolality,Calculated 274.1 MOS/KG (273-304); Potassium 3.7 MMOL/L (3.5-5.1); Total Protein 7.5 G/DL (6.4-8.2)
[2022-01-05] MEDS: KETOROLAC 30 MG/1 ML VIAL IV PRN ×3 (07:57→19:43)
[2022-01-05] MEDS: PANTOPRAZOLE 40 MG VIAL IV SCH (08:56)
[2022-01-05] MEDS: METOCLOPRAMIDE 10 MG/2 ML VIAL IV SCH ×2 (11:50→17:16)
[2022-01-05] MEDS: ERYTHROMYCIN INJ 125 MG in SODIUM CHLORIDE 0.9% 100 ML IV SCH (20:59)
[2022-01-05] MEDS: ENOXAPARIN 40 MG/0.4 ML SYRINGE SUBCUT SCH (21:00)
[2022-01-05] MEDS: PROMETHAZINE INJ 25 MG in SODIUM CHLORIDE 0.9% 50 ML IV PRN (21:06)
[2022-01-06] MEDS: ONDANSETRON 4 MG/2 ML VIAL IV PRN ×4 (01:05→17:31)
[2022-01-06] MEDS: SODIUM CHLORIDE 0.45% 1,000 ML IV SCH ×3 (01:05→12:47)
[2022-01-06] MEDS: ERYTHROMYCIN INJ 125 MG in SODIUM CHLORIDE 0.9% 100 ML IV SCH ×4 (02:25→22:00)
[2022-01-06] MEDS: KETOROLAC 30 MG/1 ML VIAL IV PRN ×3 (02:35→16:39)
[2022-01-06 05:55] LABS: Calcium 9.5 MG/DL (8.5-10.1)
[2022-01-06] MEDS: PANTOPRAZOLE 40 MG VIAL IV SCH (09:00)
[2022-01-06] MEDS: PROMETHAZINE INJ 25 MG in SODIUM CHLORIDE 0.9% 50 ML IV PRN (10:41)
[2022-01-06] MEDS: ENOXAPARIN 40 MG/0.4 ML SYRINGE SUBCUT SCH (22:01)
[2022-01-07] MEDS: ERYTHROMYCIN INJ 125 MG in SODIUM CHLORIDE 0.9% 100 ML IV SCH ×5 (04:43→21:51)
[2022-01-07] MEDS: ONDANSETRON 4 MG/2 ML VIAL IV PRN ×3 (04:43→22:58)
[2022-01-07 05:31] LABS: Basophils % 0.2 % (0.0-0.8); Hematocrit 38.9 VOL% (35.7-47.0); Immature Granulocytes % 0.6 %; Lymphocytes # 2.1 10*3/uL (1.4-4.0); Lymphocytes % 12.9 % (21.3-54.2); Mean Corpuscular HGB Conc 33.4 GM/DL (32-36); Mean Corpuscular Volume 93.7 FL (87-102); Monocytes # 1.4 10*3/uL (0.11-0.8); Monocytes % 8.5 % (1.7-12.7); Neutrophils % 77.8 % (38.7-73.9); Platelet Count 346 T/CUMM (130-400); Red Blood Count 4.15 MC/CUMM (3.8-5.5); Red Cell Distribution Width 12.6 % (9.3-17.3); White Blood Count 16.3 T/CUMM (4-12)
[2022-01-07 05:51] LABS: Calcium 9.8 MG/DL (8.5-10.1); Osmolality,Calculated 275.1 MOS/KG (273-304); Potassium 3.5 MMOL/L (3.5-5.1)
[2022-01-07] MEDS: PROMETHAZINE INJ 25 MG in SODIUM CHLORIDE 0.9% 50 ML IV PRN (10:41)
[2022-01-07] MEDS: PANTOPRAZOLE 40 MG VIAL IV SCH (10:42)
[2022-01-07] MEDS: METOCLOPRAMIDE 10 MG/2 ML VIAL IV SCH ×3 (16:24→23:00)
[2022-01-07] MEDS: KETOROLAC 30 MG/1 ML VIAL IV PRN (18:41)
[2022-01-07] MEDS: SODIUM CHLORIDE 0.45% 1,000 ML IV SCH ×2 (21:50→22:10)
[2022-01-07] MEDS: ENOXAPARIN 40 MG/0.4 ML SYRINGE SUBCUT SCH (21:51)
[2022-01-08] MEDS: ONDANSETRON 4 MG/2 ML VIAL IV PRN ×3 (02:30→20:21)
[2022-01-08] MEDS: PROMETHAZINE INJ 25 MG in SODIUM CHLORIDE 0.9% 50 ML IV PRN (02:37)
[2022-01-08] MEDS: ERYTHROMYCIN INJ 125 MG in SODIUM CHLORIDE 0.9% 100 ML IV SCH ×4 (04:46→21:30)
[2022-01-08 05:33] LABS: Basophils % 0.3 % (0.0-0.8); Eosinophils % 0.1 % (0.00-10.9); Hematocrit 38.1 VOL% (35.7-47.0); Hemoglobin 12.8 GM/DL (12.0-16.0); Immature Granulocytes % 0.5 %; Immature Granulocytes Absolute 0.06 #; Lymphocytes # 2.4 10*3/uL (1.4-4.0); Lymphocytes % 19.4 % (21.3-54.2); Mean Corpuscular HGB Conc 33.6 GM/DL (32-36); Mean Corpuscular Volume 92.7 FL (87-102); Mean Platelet Volume 9.7 FL (9.6-12.0); Monocytes # 1.3 10*3/uL (0.11-0.8); Monocytes % 10.5 % (1.7-12.7); Neutrophils % 69.2 % (38.7-73.9); Platelet Count 317 T/CUMM (130-400); Red Blood Count 4.11 MC/CUMM (3.8-5.5); Red Cell Distribution Width 12.5 % (9.3-17.3); White Blood Count 12.5 T/CUMM (4-12)
[2022-01-08] MEDS: METOCLOPRAMIDE 10 MG/2 ML VIAL IV SCH ×4 (05:54→23:58)
[2022-01-08 05:57] LABS: Bilirubin,Total 0.6 MG/DL (0.20-1.00); Calcium 9.6 MG/DL (8.5-10.1); Osmolality,Calculated 271.2 MOS/KG (273-304); Potassium 3.4 MMOL/L (3.5-5.1); Total Protein 7.6 G/DL (6.4-8.2)
[2022-01-08] MEDS: CHOLECALCIFEROL 5,000 UNIT TABLET PO SCH (09:42)
[2022-01-08] MEDS: POTASSIUM CHLORIDE RIDER 10 MEQ/100 ML PREMIX IV SCH ×2 (09:59→10:24)
[2022-01-08] MEDS: PANTOPRAZOLE 40 MG VIAL IV SCH ×2 (09:59→20:22)
[2022-01-08] MEDS: LACTATED RINGERS 1,000 ML IV SCH ×2 (13:51→23:54)
[2022-01-08] MEDS: KETOROLAC 30 MG/1 ML VIAL IV PRN (20:19)
[2022-01-08] MEDS: ENOXAPARIN 40 MG/0.4 ML SYRINGE SUBCUT SCH (20:19)
[2022-01-09] MEDS: METOCLOPRAMIDE 10 MG/2 ML VIAL IV SCH ×4 (05:18→23:07)
[2022-01-09] MEDS: ERYTHROMYCIN INJ 125 MG in SODIUM CHLORIDE 0.9% 100 ML IV SCH ×4 (05:19→21:10)
[2022-01-09 06:49] LABS: Basophils # 0.1 10*3/uL (0.0-0.2); Basophils % 0.4 % (0.0-0.8); Eosinophils # 0.1 10*3/uL (0.0-0.87); Eosinophils % 0.6 % (0.00-10.9); Hematocrit 35.5 VOL% (35.7-47.0); Hemoglobin 12.1 GM/DL (12.0-16.0); Immature Granulocytes % 0.5 %; Immature Granulocytes Absolute 0.07 #; Lymphocytes # 2.4 10*3/uL (1.4-4.0); Lymphocytes % 17.2 % (21.3-54.2); Mean Corpuscular HGB Conc 34.1 GM/DL (32-36); Mean Corpuscular Volume 92.4 FL (87-102); Mean Platelet Volume 9.9 FL (9.6-12.0); Monocytes # 1.4 10*3/uL (0.11-0.8); Monocytes % 10.3 % (1.7-12.7); Platelet Count 311 T/CUMM (130-400); Red Blood Count 3.84 MC/CUMM (3.8-5.5); Red Cell Distribution Width 12.3 % (9.3-17.3); White Blood Count 13.8 T/CUMM (4-12)
[2022-01-09 07:09] LABS: Calcium 9.2 MG/DL (8.5-10.1); Osmolality,Calculated 272.1 MOS/KG (273-304); Potassium 3.4 MMOL/L (3.5-5.1)
[2022-01-09] MEDS ORDERED: hydrALAZINE 20 MG/1 ML VIAL IV PRN (08:51)
[2022-01-09] MEDS: POTASSIUM CHLORIDE RIDER 10 MEQ/100 ML PREMIX IV SCH ×2 (09:12→17:57)
[2022-01-09] MEDS: ONDANSETRON 4 MG/2 ML VIAL IV PRN ×2 (09:27→14:05)
[2022-01-09] MEDS: PANTOPRAZOLE 40 MG VIAL IV SCH ×2 (09:31→20:46)
[2022-01-09] MEDS: LACTATED RINGERS 1,000 ML IV SCH ×2 (10:25→23:01)
[2022-01-09] MEDS: CHOLECALCIFEROL 5,000 UNIT TABLET PO SCH (14:08)
[2022-01-09] MEDS: POTASSIUM CHLORIDE 20 MEQ TABLET PO PRN ×3 (16:10→23:08)
[2022-01-09] MEDS: KETOROLAC 30 MG/1 ML VIAL IV PRN (16:34)
[2022-01-09] MEDS: ENOXAPARIN 40 MG/0.4 ML SYRINGE SUBCUT SCH (20:47)
[2022-01-10] MEDS: ERYTHROMYCIN INJ 125 MG in SODIUM CHLORIDE 0.9% 100 ML IV SCH ×3 (04:06→16:34)
[2022-01-10 05:19] LABS: Basophils % 0.3 % (0.0-0.8); Eosinophils # 0.2 10*3/uL (0.0-0.87); Eosinophils % 1.2 % (0.00-10.9); Hemoglobin 11.6 GM/DL (12.0-16.0); Immature Granulocytes % 0.6 %; Immature Granulocytes Absolute 0.07 #; Lymphocytes # 2.7 10*3/uL (1.4-4.0); Lymphocytes % 21.1 % (21.3-54.2); Mean Corpuscular HGB Conc 34.1 GM/DL (32-36); Mean Corpuscular Volume 93.2 FL (87-102); Mean Platelet Volume 9.9 FL (9.6-12.0); Monocytes # 1.2 10*3/uL (0.11-0.8); Monocytes % 9.1 % (1.7-12.7); Neutrophils % 67.7 % (38.7-73.9); Platelet Count 290 T/CUMM (130-400); Red Blood Count 3.65 MC/CUMM (3.8-5.5); Red Cell Distribution Width 12.4 % (9.3-17.3); White Blood Count 12.7 T/CUMM (4-12)
[2022-01-10 05:38] LABS: Calcium 9.3 MG/DL (8.5-10.1); Osmolality,Calculated 271.1 MOS/KG (273-304)
[2022-01-10] MEDS: METOCLOPRAMIDE 10 MG/2 ML VIAL IV SCH ×3 (05:42→17:17)
[2022-01-10] MEDS: PANTOPRAZOLE 40 MG VIAL IV SCH (10:27)
[2022-01-10] MEDS ORDERED: LIDOCAINE 2% 5 ML VIAL ONE (12:13)
[2022-01-10] MEDS ORDERED: propofoL 200 MG/20 ML VIAL IV ONE (12:13)
[2022-01-10] MEDS ORDERED: ONDANSETRON 4 MG/2 ML VIAL ONE (12:13)
[2022-01-10] MEDS: LACTATED RINGERS 1,000 ML IV SCH (13:35)
[2022-01-10] MEDS: CHOLECALCIFEROL 5,000 UNIT TABLET PO SCH (13:41)
[2022-01-10 16:19] VITALS: BP 127/78
== END 2022-01-10 17:50 | disposition home or self-care (01) | DRG 392 ==
LOC: N.2W 14:36 → N.ED 14:36 → SUATTDRO 18:20 → N.2W 01-05 00:03 → SUATTDRO 01-06 08:27 → N.2W 01-06 21:50 → N.5E 01-10 00:43
PROVIDERS: ADMIT Internal Medicine; ATTEND Hospitalist